=== PATIENT | female | born 1975 | race African-American/Black ===

== ENCOUNTER 2022-07-24 12:45 | Inpatient (IN) | payer MEDICAID, OTHER ==
[~2022-07-24] VITALS: Ht 175.3 cm; Wt 108.0 kg
[2022-07-24] MEDS ORDERED: TRAMADOL 50MG TABLET PO ONE (15:15)
[2022-07-24] MEDS ORDERED: CEFEPIME 1,000 MG in DEXTROSE 5% WATER 50 ML IV SCH (16:30)
[2022-07-24] MEDS ORDERED: VANCOMYCIN 1G PREMIX 200 ML IV SCH (16:30)
[2022-07-24 16:38] LABS: BASOPHILS % 0.2 % (0.0-2.0); EOSINOPHILS % 4.1 % (0.0-5.0); HEMATOCRIT. 30.1 % (36.0-48.0); HEMOGLOBIN. 9.7 g/dL (12.0-16.0); LYMPHOCYTES % 56.7 % (20.0-50.0); MEAN CORPUSCULAR HEMOGLOBIN 24.3 pg (28.0-32.0); MEAN CORPUSCULAR VOLUME 75.4 fL (81.0-99.0); MEAN PLATELET VOLUME 6.8 fl (7.4-10.4); MONOCYTES % 6.5 % (2.0-8.0); NEUTROPHILS % 32.5 % (40.0-76.0); PLATELET 430 x1000/uL (130-400); RED CELL DISTRIBUTION WIDTH 16.2 % (11.6-14.6)
[2022-07-24 16:50] LABS: CHLORIDE 108 mEq/L (98-107)
[2022-07-24 20:00] VITALS: BP 133/81
[2022-07-24 22:30] VITALS: BP 133/81
[2022-07-24] MEDS ORDERED: DEXTROSE 50% WATER 50ML SYRINGE IV PRN (23:30)
[2022-07-24] MEDS ORDERED: HYDROCODONE/ACETAMINOPHEN 5/325MG TABLET PO PRN (23:40)
[2022-07-25] VITALS (7 sets, daily range): BP systolic 119–151; BP diastolic 74–94
[2022-07-25] MEDS ORDERED: VANCOMYCIN 1G PREMIX 200 ML IV SCH (01:00)
[2022-07-25] MEDS ORDERED: PIPERACILLIN/TAZOBACTAM 3.375 G in DEXTROSE 5% WATER 50 ML IV SCH (06:00)
[2022-07-25] MEDS ORDERED: VANCOMYCIN 500MG PREMIX 100 ML IV SCH (06:00)
[2022-07-25] MEDS ORDERED: BLOOD SUGAR DIAGNOSTIC STRIP TEST SCH (07:20)
[2022-07-25] MEDS ORDERED: INSULIN LISPRO 100 UNITS/ML SUBCUT SCH (07:50)
[2022-07-25] MEDS ORDERED: METFORMIN HCL 500MG TABLET PO SCH (09:00)
[2022-07-25] MEDS ORDERED: ENOXAPARIN 30MG/0.3ML SYR SUBCUT SCH ×3 (09:00)
[2022-07-25] MEDS ORDERED: ENOXAPARIN 40MG/0.4ML SYR SUBCUT SCH (09:00)
[2022-07-25 09:48] LABS: CHLORIDE 107 mEq/L (98-107)
[2022-07-25 09:53] LABS: BASOPHILS % 0.3 % (0.0-2.0); EOSINOPHILS % 4.9 % (0.0-5.0); HEMATOCRIT. 28.8 % (36.0-48.0); HEMOGLOBIN. 9.4 g/dL (12.0-16.0); LYMPHOCYTES % 53.6 % (20.0-50.0); MEAN CORPUSCULAR HEMOGLOBIN 24.5 pg (28.0-32.0); MEAN CORPUSCULAR VOLUME 74.7 fL (81.0-99.0); MEAN PLATELET VOLUME 7.1 fl (7.4-10.4); MONOCYTES % 6.5 % (2.0-8.0); NEUTROPHILS % 34.7 % (40.0-76.0); PLATELET 397 x1000/uL (130-400); RED BLOOD CELL COUNT 3.85 mill/uL (4.2-5.4); RED CELL DISTRIBUTION WIDTH 15.8 % (11.6-14.6)
[2022-07-25] MEDS: VANCOMYCIN 1G PREMIX 200 ML IV SCH ×2 (11:00→23:07)
[2022-07-25] MEDS ORDERED: NALOXONE HCL 0.4MG/ML VIAL IV PRN (11:30)
[2022-07-25] MEDS: CEPHALEXIN 250MG CAPSULE PO SCH ×3 (13:23→23:55)
[2022-07-25] MEDS: ACETAMINOPHEN 325MG TABLET PO PRN ×2 (14:08→23:55)
[2022-07-25 18:41] LABS: HCG SCREEN NEGATIVE
[2022-07-26 04:00] VITALS: BP 135/84
[2022-07-26] MEDS: CEPHALEXIN 250MG CAPSULE PO SCH ×2 (05:51→11:51)
[2022-07-26 08:00] VITALS: BP 134/84
[2022-07-26] MEDS ORDERED: ACETAMINOPHEN 325MG TABLET PO PRN (11:45)
[2022-07-26] MEDS ORDERED: LIDOCAINE HCL 1% 20ML VIAL (Pyxis) INJ INFIL NR (12:00)
[2022-07-26 12:58] LABS: CHLORIDE 103 mEq/L (98-107)
[2022-07-26] MEDS ORDERED: LIDOCAINE 2% JELLY PREFILLED SYRINGE MM NR (13:00)
[2022-07-26] MEDS ORDERED: CEPH250C2 PO ×2 (14:26)
[2022-07-26] MEDS ORDERED: LEVO750T68 MT (16:11)
[2022-07-26] MEDS ORDERED: SULF1TAB48 MT (16:11)
[2022-07-26 16:27] VITALS: BP 137/84
== END 2022-07-26 18:33 | disposition home or self-care (01) | DRG 383 ==
LOC: ER 12:45 → 6EST 17:13 → EDBEDREQ 17:20 → EDBEDREQTM 17:20
PROVIDERS: ADMIT Internal Medicine; ATTEND Internal Medicine
PROC: 0JBN0ZZ Excision of Right Lower Leg Subcutaneous Tissue and Fascia, Open Approach (ICD-10-PCS; principal; 2022-07-26)
DX: L03.115 Cellulitis of right lower limb (principal); E43 Unspecified severe protein-calorie malnutrition; E87.8 Other disorders of electrolyte and fluid balance, not elsewhere classified; E11.9 Type 2 diabetes mellitus without complications; D50.9 Iron deficiency anemia, unspecified; E66.9 Obesity, unspecified; E87.5 Hyperkalemia; L02.415 Cutaneous abscess of right lower limb; Z68.35 Body mass index [BMI] 35.0-35.9, adult; Z98.891 History of uterine scar from previous surgery
CPT/HCPCS: 36415; 73590; 80048; 80053; 80202; 82962; 83036; 84703; 85025; 85651; 87070; 87077; 87186; 93922; 93971; 99285; J0692; J1650; J2543; J3370; J3490; J7060